=== PATIENT | female | born 1930 | race Caucasian/White ===

== ENCOUNTER 2017-07-23 10:48 | Observation (INO) ==
--- NOTE | 2017-07-22 21:52 | Discharge Summary ---
<Mel Lua - Last Filed: 07/22/17 21:50> Date of Encounter: 07/22/17 - Discharge Diagnosis (1) Status post total right knee replacement Priority: Primary Status: Acute (2) Arthritis of right knee Priority: Primary Status: Chronic (3) HTN (hypertension) Priority: Secondary Status: Chronic Qualifiers: Hypertension type: unspecified Qualified Code(s): I10 - Essential (primary ) hypertension (4) Osteoporosis Priority: Secondary Status: Chronic Qualifiers: Osteoporosis type: unspecified Presence of current pathological fracture: unspecified Qualified Code(s): M81.0 - Age-related osteoporosis without current pathological fracture (5) History of breast cancer Priority: Secondary Status: Chronic - Hospital Course Hospital course: Ms. Jimenes is a 86 year old female - Time Spent with Patient Total time spent providing and/or coordinating discharge services: - Discharge Medications Home Medications: Aspirin Enteric Coated [Aspirin EC] 325 mg PO BID 10 Days #20 tablet. [Rx] OxyCODONE Immed Rel [Roxicodone 5 MG] 5 mg PO Q6HR PRN 7 Days #28 tablet [Rx] Atenolol [Tenormin] 50 mg PO BID 07/23/17 [History] Calcium Citrate/Vitamin D3 [Calcium Citrate - Vit D Caplet] 1 tab PO DAILY 07/23 [History] Cholecalciferol (D-3) [Vitamin D] 1,000 unit PO DAILY 07/23/17 [History] Losartan [Cozaar] 25 mg PO 1200 07/23/17 [History] Vit C/E/Zn/Coppr/Lutein/Zeaxan [Preservision Areds 2 Softgel] 1 cap PO DAILY 06/10 [History] Allergies/Adverse Reactions: 3 Allergy/AdvReac Type Severity Reaction Status Date / Time Amoxicillin AdvReac Diarrhea Verified 07/23/17 12:19 Sulfa (Sulfonamide AdvReac Diarrhea Verified 07/23/17 12:19 Antibiotics) Primary care physician: Rhianna Harris CNP - Patient Status Disposition: Home Health Service Condition: Good - Discharge Instructions Follow Up With: Rhianna Harris CNP [Primary Care Provider] - <Cas Coleman - Last Filed: 07/24/17 06:41> Orders not resulted at time of discharge: Pending orders 07/23/17 US anesthesia pain block [US] Stat 07/23/17 01:00 XR knee RT limited 1-2V [XR] Routine Hemoglobin and Hematocrit [HEME] Routine Date of Encounter: 07/24/17 Time of Encounter: 06:41 - Discharge Diagnosis (1) Arthritis of right knee Priority: Primary Status: Chronic (2) Status post total right knee replacement Priority: Primary Status: Acute (3) HTN (hypertension) Priority: Secondary Status: Chronic Qualifiers: Hypertension type: unspecified Qualified Code(s): I10 - Essential (primary ) hypertension (4) Osteoporosis Priority: Secondary Status: Chronic Qualifiers: Osteoporosis type: unspecified Presence of current pathological fracture: unspecified Qualified Code(s): M81.0 - Age-related osteoporosis without current pathological fracture (5) History of breast cancer Priority: Secondary Status: Chronic - Hospital Course Hospital course: Ms. Jimenes is a 86 year old female Status post right total knee replacement The patient had an uneventful postoperative course. They received antibiotics and physical therapy and were discharged in stable condition. There will follow -up in the office in 2 weeks. - Time Spent with Patient Total time spent providing and/or coordinating discharge services: Primary care physician: Rhianna Harris CNP - Patient Status Functional capacity at discharge: uses cane/walker Overall status at discharge: patient is progressing back to baseline
--- NOTE | 2017-07-22 21:54 | Physician Discharge Referral ---
Home Health/Hosp Referral Info Transfer to: Home Health Attending Provider: Dr Coleman - Diagnosis (1) Status post total right knee replacement Priority: Primary Status: Acute (2) Arthritis of right knee Priority: Primary Status: Chronic (3) HTN (hypertension) Priority: Secondary Status: Chronic (4) Osteoporosis Priority: Secondary Status: Chronic (5) History of breast cancer Priority: Secondary Status: Chronic - Respiratory Orders Smoking Cessation: Smoking cessation has been advised. For more information, call the [employer] Quit Line at 8-236-RUIH-NOW. - Dressing/Wound Care Site: right knee Type of Dressing/Treatments w/Frequency: Opsite placed. Keep dressing intact until first follow up appointment. If greater than 50% saturated, notify office, remove dressing and place appropriate dressing back in place. Leave Zipline intact. Opsite dressing is water resistant, not water-proof. OK to shower, but do not get dressing wet. - Diet/Nutrition Diet/Nutrition Orders: Regular - Activity Activity Orders: Up ad rodolfo, Ambulate, Chair, Walker Activity: List: Total Knee replacement Precautions x 6 weeks Apply cold therapy wrap 3-6x/day for 20 minutes at a time. Encourage ambulation throughout the day and incentive spirometer 10x/hour. Elevate affected extremity above heart as tolerated. Brace: Wear knee immobilizer at night x 2 weeks. - Services Needed Following services are medically necessary services: Nursing, Home Health Aide, Physical Therapy, Occupational Therapy - Transfer Medications Prescriptions: OxyCODONE Immed Rel [Roxicodone 5 MG] 5 mg PO Q6HR PRN 7 Days #28 tablet PRN Reason: Severe Pain Aspirin Enteric Coated [Aspirin EC] 325 mg PO BID 10 Days #20 tablet. Home Medications: Cefdinir [Omnicef] 300 mg PO BID #20 capsule 12/28/14 [Rx] Ondansetron [Zofran] 8 mg PO Q8HR #20 tablet 12/28/14 [Rx] Aspirin Enteric Coated [Aspirin EC] 325 mg PO BID 10 Days #20 tablet. [Rx] OxyCODONE Immed Rel [Roxicodone 5 MG] 5 mg PO Q6HR PRN 7 Days #28 tablet [Rx] Allergies/Adverse Reactions: 3 Allergy/AdvReac Type Severity Reaction Status Date / Time Amoxicillin AdvReac Diarrhea Verified 12/28/14 06:09 Certification: Further, I certify that my clinical findings support that this patient is homebound (i.e. absences from home require considerable and taxing effort and are for medical reasons or spiritism services or infrequently or short duration when for other reasons) because: Homebound Reason: Post-surgery restriction and or conditions limit ability to leave home Attestation: My signature below is to certify that this patient is under my care and that I, or nurse practitioner, or a physician assistant spa director working with me, has a face-to- face encounter with this patient.
--- NOTE | 2017-07-23 11:23 | Anesthesia Evaluation PreOp ---
Date of Encounter: 07/23/17 Time of Encounter: 11:21 - Past History Planned Operation: Right Total Knee Arthroplasty Cardiac History: HTN Pulmonary History: Denies Any Significant HX CARE ATTENDANT History: Denies Any Significant HX Other Medical History: Other (H/O breast CA) Anesthesia History: No Prior Anesthetic Complications, Past Anesthesia ( hysterectomy) Alcohol Use: none Drug use: none Medications and Allergies Cefdinir [Omnicef] 300 mg PO BID #20 capsule 12/28/14 [Rx] Ondansetron [Zofran] 8 mg PO Q8HR #20 tablet 12/28/14 [Rx] Aspirin Enteric Coated [Aspirin EC] 325 mg PO BID 10 Days #20 tablet. [Rx] OxyCODONE Immed Rel [Roxicodone 5 MG] 5 mg PO Q6HR PRN 7 Days #28 tablet [Rx] 3 Allergy/AdvReac Type Severity Reaction Status Date / Time Amoxicillin AdvReac Diarrhea Verified 12/28/14 06:09 - Meds/Allergy Pre-op Review Medications Reviewed: Yes Allergies Reviewed: Yes Beta Blockers on Current Med List: Yes If Beta Blockers taken, Date/Time (Last Dose taken): 07/23/2017 at 0700 Anesthesia Results - Labs Laboratory Tests 07/12/17 07/12/17 07/12/17 08:13 08:13 08:13 WBC 8.6 Hgb 14.2 Hct 46.4 H Plt Count 260 PT 10.8 INR 1.0 APTT 30.5 Sodium 139 Potassium 4.6 BUN 19 Creatinine 0.98 - Imaging EKG: report reviewed (07/12/2017 SINUS RHYTHM) Additional studies: 05/24/2012 Echo Impressions: * There is basal septal hypertrophy, otherwise normal LV size, function, and thickess. LVEF 55-60% * Mild LV diastolic dysfunction. * Normal RV. * Mildly dilated left atrium. 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 * Mild MR. * Mild pulmonary hypertension. * The estimated RVSP was 38 mmHg as estimated by Doppler. Anesthesia Exam O2 Sat Height 1.5 m Height 1.5 m Weight 55.792 kg Weight 55.792 kg O2 Sat by Pulse Oximetry 98 Vital Signs Temp Pulse Resp BP Pulse Ox 98.0 F 66 18 162/68 98 07/23/17 11:09 07/23/17 11:09 07/23/17 11:09 07/23/17 11:09 07/23/17 11:09 Height: 4'11''/1.5 m Weight: 123 lbs/55.8 kg NPO (# of Hours): 8 Pain Scale: 0 Pain Scale Used: Numeric (1 - 10) - HEENT Pupil (Motor): EOMI Mallampati: III Teeth: Normal Oral Opening: Greater than 3 - CARE ATTENDANT LOC: Oriented CARE ATTENDANT Motor: Normal RUE, Normal LUE, Normal RLE, Normal LLE, Normal Face CARE ATTENDANT Sensory: Normal: RUE, LUE, RLE, LLE, Face - Cardiac Rhythm: Regular Murmur: None - Pulmonary Breath Sounds: bilateral Clear Respiratory Effort: Symmetrical Anesthesia Assess/Plan ASA Score: 2 Modified Mario Alberto Scale for Level of Consciousness: Cooperative, oriented, and tranquil Anesthetic Plan: General, Regional Monitoring Plan: Standard Monitors Recovery Plan: PACU
[2017-07-23] MEDS ORDERED: Clindamycin 900 MG/50 ML 900 MG/50 ML IV.SOLN IVPB ONE (11:24)
[2017-07-23] MEDS ORDERED: Ringers Solution, Lactated 1,000 ML IVC SCH ×2 (11:30→16:43)
[2017-07-23] MEDS ORDERED: *HR* FentaNYL (PF) 100 MCG/2 ML VIAL ONE (12:27)
[2017-07-23] MEDS ORDERED: Ketorolac 30 MG/ML VIAL ONE (12:27)
[2017-07-23] MEDS ORDERED: *HR* Labetalol 20 MG/4 ML SYRINGE IVP PRN (12:36)
[2017-07-23] MEDS ORDERED: Dexamethasone 4 MG/ML VIAL IVP ONE (12:36)
[2017-07-23] MEDS ORDERED: Ondansetron 4 MG/2 ML VIAL IVP ONE (12:36)
[2017-07-23] MEDS ORDERED: Lidocaine -MPF 2% 2 ML VIAL ONE (12:38)
[2017-07-23] MEDS ORDERED: Ondansetron 4 MG/2 ML VIAL ONE (12:38)
[2017-07-23] MEDS ORDERED: *HR* Propofol 200 MG/20 ML VIAL IVP ONE (12:38)
[2017-07-23] MEDS ORDERED: Dexamethasone 4 MG/ML VIAL ONE ×2 (12:38→13:17)
[2017-07-23] MEDS ORDERED: Lidocaine -MPF 4% 5 ML AMPUL ONE (12:43)
[2017-07-23] MEDS ORDERED: *HR* Midazolam HCl 2 MG/2 ML VIAL ONE (12:58)
--- NOTE | 2017-07-23 13:03 | History & Physical Report ---
Date of Encounter: 07/23/17 Time of Encounter: 13:02 24 Hour HP Update - Instructions Instructions: If the History and Physical is less than 30 days old and was completed prior to A.M. admission and or procedure and has NOT been updated on calendar day of procedure please complete this update prior to performing procedure. - Update Patient reports changes in Medical Condition: No Changes in examination, assessment, or condition: No Changes in Medication: No Preop tests/diagnostics Reviewed: Yes Surgery Remains Indicated: Yes Consent for Planned Operative Procedure(s) Verified: Yes - Pre-Operative Checklist Preoperative Checklist Indicated: No Prophylactic Antibiotic Ordered: Yes Is VTE Prophylaxis Indicated?: Yes
[2017-07-23] MEDS ORDERED: ROPIVACAINE HCL/PF 0.5% 30 ML VIAL ONE (13:15)
[2017-07-23] MEDS ORDERED: Bupivacaine/Clonidine Syringe 1 EACH SYRINGE ONE (13:17)
[2017-07-23] MEDS ORDERED: Ethanol\\Acetic Acid\\Na Ace\\Ben 1,000 ML IRRIG.SOLN IR ONE (13:35)
--- NOTE | 2017-07-23 13:48 | Anesthesia Procedures ---
Date of Encounter: 07/23/17 Time of Encounter: 13:46 Procedures: Anesthesia - Nerve Block Procedure Date: 07/23/17 Time: 13:46 Allergies/Adv Reactions: Amoxicillin Pre-op Diagnosis: right knee arthritis Surgical Procedure: right total knee Checklist: Correct Patient Identifier, Correct procedure, History checked Correct side: Right Blood Thinner: No Monitor Applied: BP, Pulse Oximetry Supplemental Oxygen via Nasal Cannula (L/min): 2 Sedation: Versed (mg): 2 Indication: Post Op Analgesia (per dr. leon) Pre-op Neuro Deficits: No Block Type: Femoral, Other (ipack) Catheter placed: No Sterile Technique: Yes Ultrasound used: Yes Anatomy identified: Yes Visual spread of Local: Yes Neuro Stimulation: Yes Nerve Stimulator Range: 0.2 - 0.4 mA Blood on Needle Aspiration: No Smooth Injection of Local: Yes Pain with Injection of Local: No Prep: Chlorhexadine Needle: 22 x 50 mm Stimuplex (for femoral), 21 x 100 mm Stimuplex (for ipack) Local: 0.25% Bupivicaine w/Clonidine 20 mcg/cc (20ml for ipack), Ropivacaine ( 0.5% with decadron 8mg for femoral) Volume (cc): 30ml for femoral, 20ml fo Number of Attempts: 1 Complications: None/effective block Vitals: Vital Signs/O2 Sat, Most Current Temp Pulse Resp BP Pulse Ox 98.0 F 69 18 170/79 100 07/23/17 11:09 07/23/17 13:33 07/23/17 13:33 07/23/17 13:33 07/23/17 13:33
[2017-07-23] MEDS ORDERED: Acetaminophen IV 1,000 MG/100 ML INFUS..BTL ONE (14:28)
--- NOTE | 2017-07-23 14:57 | Orthopedic Operative Note ---
Date of procedure: 07/23/17 Pre-op diagnosis: Right knee arthritis Post-op diagnosis: same Procedure: Procedure: Right robotic-assisted Total knee replacement Estimated blood loss: 200 cc Hardware: Metal and polyethylene replacement. [place] Femur: 2 Tibia: 3 TS insert: 13 Patella: 33 Exam Under anesthesia: 6 degrees hyperextension 5 degrees varus as calculated by the robot full flexion and no instability Procedural Notes: Grade 3 arthritic changes all 3 compartments. Operative procedure: The patient was brought to the operating room and placed on the operating room table. After general anesthesia was administered the operative knee was examined. Findings were noted in the exam under anesthesia. The operative extremity was prepped and draped in sterile surgical fashion. The patient received IV antibiotics prior to skin incision. A standard midline incision was made centered over the patella. The incision was made through the skin and subcutaneous tissue. A medial parapatellar tendon approach was performed. Care was taken to preserve tissue along the medial aspect of the patella. And to protect the patella tendon. The deep MCL was released off the medial tibia. The infra patella fat pad was excised. The patella was everted and cut was made at the level of the insertion of the quadriceps and patella tendon. The patella was sized to 33 the guide was seated and the lug holes are drilled. Knee was brought into flexion. Patient noted to have grade 3 arthritic changes all 3 compartments. Steinmann pins were placed in the tibia and the femur for the tibial and femoral arrays respectively. Checkpoints were also placed in the tibia and the femur for calculation purposes. The knee including the femur and the tibial registered. Osteophytes, ACL and PCL were excised at this point. Extension and flexion were assessed with a valgus stress components were adjusted on the computer to balance the knee. Femoral cuts were made first with robotic assistance, these included the anterior cut posterior cuts chamfer cuts. Tibial cut was then performed with robotic assistance as well. Bone fragments were removed, as well as the medial and lateral meniscus. The size 2 femoral guide was seated box cut was made lug holes are drilled. The size 3 tibial tray was seated and prepared with the fin cutter. Trial reduction with the 13 TPolly revealed extension of 0 degree and 5 degrees varus full flexion. No varus valgus instability. Trial reduction revealed excellent patella tracking. All trial components were removed all bony surfaces were irrigated. The Tibia was seated followed by the femur, The Evie size 13 was seated and secured patella. Patient had similar findings for motion and stability. The knee was closed by the PA. The knee was then irrigated out with 2 L of pulse irrigation. The extensor mechanism was closed with #2 FiberWire suture and #2 PDS suture. The subcutaneous tissue was then irrigated and closed deep with #1 PDS suture superficially with 0 PDS suture and skin was closed with zip tie The patient was then placed in a sterile dressing and a postoperative brace extubated and transferred to recovery room in stable condition. Anesthesia: GETA Surgeon: Cas Coleman Was there an financial services assistant present: No Estimated blood loss (cc): 200 Condition: stable Disposition: PACU
[2017-07-23] MEDS: *HR* Morphine 2 MG/ML SYRINGE IVP PRN ×2 (15:43→16:09)
[2017-07-23 16:11] LABS: Hematocrit 37.5 % (35.3-44.9); Hemoglobin 11.8 g/dL (11.5-15.4)
--- NOTE | 2017-07-23 16:18 | Anesthesia Evaluation Post Op ---
Date of Encounter: 07/23/17 Time of Encounter: 16:17 - Vital Signs Vital Signs: vss - Lungs Lungs: Clear Ascult./Percussion - Airway Airway: Non-obstructed - Cardiovascular Baseline Rhythm - Mental Status Mental Status: Alert & Oriented, Answers Appropriately - Pain Pain Scale used: Grayson-Norris (Faces) (tolerable) - Nausea Vomiting Nausea Vomiting: Not Present - Hydration Hydration: Ice chips - Discharge PostOp Status: Transfer Patient to floor
[2017-07-23] MEDS ORDERED: *HR* OxyCODONE/APAP 5/325 TABLET PO PRN (16:43)
[2017-07-23] MEDS ORDERED: traMADol 50 MG TABLET PO PRN (16:43)
[2017-07-23] MEDS ORDERED: *HR* OxyCODONE Immed Rel 5 MG TABLET PO PRN (16:43)
[2017-07-23] MEDS ORDERED: Naloxone 0.4 MG/ML INJ IVP PRN (16:43)
[2017-07-23] MEDS ORDERED: Sennosides 8.6 MG TABLET PO PRN (16:43)
[2017-07-23] MEDS ORDERED: Clindamycin 900 MG/50 ML 900 MG/50 ML IV.SOLN IVPB SCH (16:43)
[2017-07-23] MEDS ORDERED: MOM Conc 10 ML UD.LIQ PO PRN (16:43)
[2017-07-23] MEDS ORDERED: Temazepam 15 MG CAPSULE PO PRN (16:43)
[2017-07-23] MEDS ORDERED: Ondansetron 4 MG/2 ML VIAL IVP PRN (16:43)
[2017-07-23] MEDS: Clindamycin 900 MG/50 ML 900 MG/50 ML IV.SOLN IVPB SCH (22:06)
[2017-07-24] MEDS: Clindamycin 900 MG/50 ML 900 MG/50 ML IV.SOLN IVPB SCH (05:54)
[2017-07-24 06:19] LABS: Hematocrit 35.3 % (35.3-44.9); Hemoglobin 11.1 g/dL (11.5-15.4)
[2017-07-24 06:40] LABS: BUN/Creatinine Ratio 21 (6-26); Blood Urea Nitrogen 21 mg/dL (8-23); Calcium 8.5 mg/dL (8.6-10.3); Carbon Dioxide 24 mEq/L (23-29); Chloride 104 mEq/L (98-107); Glucose 172 mg/dL (70-105); Osmolality,Calculated 289 (280-300); Potassium 4.3 mEq/L (3.5-5.1); Sodium 136 mEq/L (136-145); eGFR For African Americans > 60 (> 60); eGFR For Non-African Americans 53 (> 60)
--- NOTE | 2017-07-24 06:42 | Orthopedics Progress Note ---
Date of Encounter: 07/24/17 Time of Encounter: 06:42 - Assessment and Plan (1) Arthritis of right knee Current Visit: No Status: Chronic (2) Status post total right knee replacement Current Visit: No Status: Acute (3) HTN (hypertension) Current Visit: No Status: Chronic Qualifiers: Hypertension type: unspecified Qualified Code(s): I10 - Essential (primary ) hypertension (4) Osteoporosis Current Visit: No Status: Chronic Qualifiers: Osteoporosis type: unspecified Presence of current pathological fracture: unspecified Qualified Code(s): M81.0 - Age-related osteoporosis without current pathological fracture (5) History of breast cancer Current Visit: No Status: Chronic Subjective Interval history: Patient was seen this morning doing well without complaints. Afebrile vital signs stable. Operative extremity: Neurovascularly intact Dressing clean dry and intact Calves nontender Assessment and plan: Continue with postoperative care Hematocrit 35 discharged today Objective Vital signs: Vital Signs Temp Pulse Resp BP Pulse Ox 07/24/17 03:14 63 16 160/63 100 07/23/17 23:06 56 16 127/56 100 07/23/17 20:00 98.4 F 66 16 160/68 100 07/23/17 19:20 97.6 F 57 14 111/56 96 07/23/17 18:42 97.6 F 62 16 114/64 94 07/23/17 18:09 97.6 F 74 17 140/67 99 07/23/17 17:38 97.5 F L 61 16 132/69 97 07/23/17 17:00 97.5 F L 64 16 126/57 98 07/23/17 16:21 97.9 F 73 16 155/78 100 07/23/17 16:11 75 16 141/74 99 07/23/17 16:01 81 16 153/71 100 07/23/17 15:51 97.7 F 82 16 135/64 100 07/23/17 15:41 82 16 183/84 100 07/23/17 15:31 79 17 180/88 97 07/23/17 15:21 97.9 F 89 16 162/87 96 07/23/17 13:55 65 16 175/81 100 07/23/17 13:47 67 18 170/79 100 07/23/17 13:33 69 18 170/79 100 07/23/17 13:26 73 18 219/97 100 07/23/17 11:09 98.0 F 66 18 162/68 98 Intake and Output 07/23/17 07/23/17 07/24/17 15:59 23:59 07:59 Intake Total 50 / 50 150 / 150 Output Total 200 / 200 Balance -150 / -150 150 / 150 Intake: IV Fluids 50 / 50 50 / 50 Cleocin Premix 900 MG/50 ML 900 50 / 50 50 / 50 mg In 50 ml @ 50 mls/hr IVPB Q8H DUSTY Rx#:[id number] Oral 100 / 100 Output: Estimated Blood Loss 200 / 200 Other: # Voids 1 Weight 55.792 kg 66.1 kg Patient Weight 07/24/17 23:59 Weight 66.1 kg - Labs CBC & BMP: 07/24/17 05:42 07/24/17 05:42 Labs: Abnormal lab results Hgb 11.1 g/dL (11.5-15.4) L 07/24/17 05:42 Est GFR (Non-Af Amer) 53 (> 60) L 07/24/17 05:42 Glucose 172 mg/dL (70-105) H 07/24/17 05:42 Calcium 8.5 mg/dL (8.6-10.3) L 07/24/17 05:42 - VTE Documentation of Mechanical Device: Venous foot pump, device Consult Discharge Plan - Plan Referrals: Rhianan Harris, [facility] IRONER [Primary Care Provider] -
[2017-07-24] MEDS: Cholecalciferol (D-3) 1,000 UNIT TABLET PO SCH (09:45)
[2017-07-24] MEDS: Aspirin Enteric Coated 81 MG Tablet PO SCH (14:40)
--- NOTE | 2017-07-24 14:44 | Event Note ---
Date of Encounter: 07/24/17 Time of Encounter: 09:30 Late entry - patient fell - examined wound. Superficial wound closure dehiscence. Cleansed throroughly. Stapled. patient tolerated well. Zipline reapplied. Cleansed again. Honeycomb applied.
--- NOTE | 2017-07-24 14:46 | Event Note ---
Date of Encounter: 07/24/17 Time of Encounter: 12:25 PCR- POD#1 R TKR robotic 07/23/17 Jared PCR - Patient seen at bedside. Labwork and medications reviewed. Pain control: Adequate Participating in PT. All questions and concerns addressed. Educated on use of incentive spirometer, ambulation, and hydration. Patient educated on post-operative restrictions and care. Addressed: Wound dehiscence - patient being noncompliant with bed alarm and attempting to ambulate independently. Patient reeducated however she changes the topic. She at first denies knowledge of falling this morning. Concern for possible underlying dementia worsened from surgery and pain medications as well as new environment. Nursing staff aware of patient's lack of awareness to personal safety. D/C plan: Home tomorrow with home health pending any further complications. If patient determined to be unsafe will refer to [facility]CF for rehab.
[2017-07-25 08:54] LABS: Hematocrit 31.4 % (35.3-44.9)
[2017-07-25 09:01] LABS: BUN/Creatinine Ratio 24 (6-26); Blood Urea Nitrogen 24 mg/dL (8-23); Calcium 9.2 mg/dL (8.6-10.3); Carbon Dioxide 27 mEq/L (23-29); Chloride 102 mEq/L (98-107); Glucose 138 mg/dL (70-105); Osmolality,Calculated 284 (280-300); Potassium 4.5 mEq/L (3.5-5.1); Sodium 134 mEq/L (136-145); eGFR For African Americans > 60 (> 60); eGFR For Non-African Americans 53 (> 60)
[2017-07-25] MEDS: Acetaminophen 325 MG TABLET PO PRN (09:38)
[2017-07-25] MEDS: Cholecalciferol (D-3) 1,000 UNIT TABLET PO SCH (09:40)
[2017-07-25] MEDS: Aspirin Enteric Coated 81 MG Tablet PO SCH (09:40)
[2017-07-25 11:52] LABS: Bilirubin,Urine Negative (Negative); Blood,Urine Negative (Negative); Clarity,Urine Clear (Clear); Color,Urine Yellow (Yellow); Glucose,Urine (UA) Normal (Normal); Ketones,Urine Trace mg/dL (Negative); Leukocyte Esterase,Urine Negative (Negative); Nitrite,Urine Negative (Negative); Protein,Urine Trace mg/dL (Neg-Trace); Specific Gravity,Urine 1.028 (1.010-1.025); Urobilinogen,Urine Normal (Normal)
[2017-07-25 11:56] LABS: Bacteria,Urine None Seen per hpf (None-Few); Hyaline Casts,Urine None Seen per lpf (None-Few); RBC,Urine 0-3 per hpf (0-3); Squamous Epithelial Cell,Urine Many per lpf (None-Few); WBC,Urine 0-3 per hpf (0-3)
--- NOTE | 2017-07-25 17:02 | Orthopedics Progress Note ---
Date of Encounter: 07/25/17 Time of Encounter: 11:45 - Assessment and Plan (1) Status post total right knee replacement Current Visit: Yes Status: Acute (2) Arthritis of right knee Current Visit: Yes Status: Chronic (3) HTN (hypertension) Current Visit: No Status: Chronic Qualifiers: Hypertension type: unspecified Qualified Code(s): I10 - Essential (primary ) hypertension (4) Osteoporosis Current Visit: No Status: Chronic Qualifiers: Osteoporosis type: unspecified Presence of current pathological fracture: unspecified Qualified Code(s): M81.0 - Age-related osteoporosis without current pathological fracture (5) History of breast cancer Current Visit: No Status: Chronic (6) Fall Current Visit: Yes Status: Acute Qualifiers: Encounter type: subsequent encounter Qualified Code(s): W19.XXXD - Unspecified fall, subsequent encounter (7) Wound dehiscence Current Visit: Yes Status: Acute 07/24/17 - Corrected with lindsay - patient tolerated well Subjective Principal diagnosis: Right total knee replacement Interval history: POD#2 R TKR robotic 07/23/17 Jared Patient seen at bedside - no family available. Alert and oriented to person and time. Patient states she is presently in top floor of where she and her live and initially denies knowledge of knee replacement surgery. Does admit to a fall and recounts appropriate details of the fall however she then appears to believe she is here secondary to a fall 1 day ago based on stating "I'm here for Dr. Coleman to do something". Incision intact. Dressing c/d/i. No calf tenderness. Neurovascularly intact. Labwork and medications reviewed. Pain control: Adequate Participating in PT. Patient refusing some guidance from nursing and PT. All questions and concerns addressed. Educated on use of incentive spirometer, *assisted ambulation, and hydration. Patient educated on post-operative restrictions and care. Addressed: Wound dehiscence - patient being noncompliant with bed alarm and attempting to ambulate independently. Patient reeducated - Concern for possible underlying dementia worsened from surgery and pain medications as well as new environment. Nursing staff aware of patient's lack of awareness to personal safety. Bed alarm to continue. D/C plan: ECF tomorrow. Objective Vital signs: Vital Signs Temp Pulse Resp BP Pulse Ox 07/25/17 15:19 100.5 F H 65 18 148/60 97 07/25/17 11:11 98.5 F 61 18 153/61 98 07/25/17 07:29 97.8 F 66 18 145/70 95 07/24/17 23:24 98.2 F 71 14 186/68 95 07/24/17 19:51 98.2 F 66 14 138/57 97 Intake and Output 07/25/17 07/25/17 07/25/17 07:59 15:59 23:59 Intake Total 240 / 240 Output Total 100 / 100 200 / 200 Balance -100 / -100 40 / 40 Intake: Oral 240 / 240 Output: Urine 100 / 100 200 / 200 Other: Meal Lunch Percent of Meal Consumed 100% # Voids 1 2 - Labs CBC & BMP: 07/25/17 08:15 07/25/17 08:15 Labs: Abnormal lab results Hgb 10.0 g/dL (11.5-15.4) L 07/25/17 08:15 Hct 31.4 % (35.3-44.9) L 07/25/17 08:15 Sodium 134 mEq/L (136-145) L 07/25/17 08:15 BUN 24 mg/dL (8-23) H 07/25/17 08:15 Est GFR (Non-Af Amer) 53 (> 60) L 07/25/17 08:15 Glucose 138 mg/dL (70-105) H 07/25/17 08:15 Ur Specific [place] 1.028 (1.010-1.025) H 07/25/17 10:00 Urine Ketones Trace mg/dL (Negative) H 07/25/17 10:00 Ur Squamous Epith Cells Many per lpf (None-Few) H 07/25/17 10:00 - VTE Documentation of Mechanical Device: Venous foot pump, device Consult Discharge Plan - Plan Additional Instructions: Discharge Instructions: Total Knee Replacement Please call [facility] ([phone]), your Primary Care Physician, or report to the Emergency Room if you have any of the following symptoms: Nausea, vomiting, fever greater that 101.5, swelling, chest pain, shortness of breath, increased pain/redness/drainage/odor for your incision site, numbness/ tingling, or any other concerning symptoms. ACTIVITY:Weight-bearing as tolerated. You may progress off support (crutches or walker) as tolerated. MEDICATIONS: Upon discharge resume your home medications. Take all the medications as prescribed. Take a stool softener if taking narcotic pain medications. Stool softeners are only effective if you drink enough fluids. Drink 6-8 glass of water or fluids a day, unless this is not allowed for another health problem. Despite using stool softeners, if you haven't had a bowel movement in 3 days, please switch to a gentle laxative. Gentle laxatives are sold over the counter. You should have a bowel movement within 24 hours, if not call the office. You will be discharged from the hospital with a prescription for pain medication. You are encouraged to decrease the use of narcotic pain medication as tolerated. Should you require a refill, please call the office. [facility] prescribes narcotic pain medication for only 4-6 weeks after surgery. If you require pain medication beyond this time period, you may be referred to your Primary Care Physician or to the Pain Clinic for further evaluation. Plan ahead for refills on pain medication as many narcotics either need to be picked up at the office or mailed. It is best to call 48-72 hours in advance of needing a prescription refill so you don't run out of medication. To help control the post-operative pain, you may take NSAIDs (Aleve,Advil, Motrin, Ibuprofen, Naprosyn) or Tylenol as prescribed on the bottle in addition to the pain medication. ANTICOAGULATION (blood thinners): Continue your Aspirin, Lovenox or Coumadin as prescribed to help prevent a blood clot in the leg or in the lungs. As long as your incision remains dry and you tolerate the NSAIDs (Aleve, Advil, Motrin, ibuprofen, naprosyn), it is OK to use the NSAIDS while you are taking your anticoagulation medication. Should your incision start to drain, stop the NSAID and contact our office. Common symptoms of blood clot in the legs include: localized pain, swelling, calf tenderness, redness or discoloration of the skin. Blood clot in the lung symptoms include: shortness of breath, rapid pulse, sweating, and chest pain that worsens with deep breathing, coughing up blood, lightheadedness, feelings of anxiety. If you experience any of these symptoms notify your physician immediately, go to the emergency room, or if having trouble breathing, call 911. WOUND CARE: Leave the dressing on for 7 to 10days. You may change the dressing if it becomes saturated greater than 50%. Do not get the dressing wet at anytime. Wash your hands with antibacterial soap, rinse and dry prior to any wound care. If you have lindsay the visiting nurse or rehab facility can remove the stapes 10-14 days after surgery and place steri-strips across the wound. Leave the steri-strips in place until they fall off on their won. You may let water from the shower run on top of the steri-strips. If you do not have a visiting nurse or rehab facility, you will need to return to the office at 10-14 days for the lindsay to be removed. If you have itching or redness around the dressing call the office. FOLLOW-UP: Please follow up with your surgeon in the orthopedic clinic in 4 weeks from the day of surgery. If you have lindsay that need to be removed, you will need to come back to the office in 10-14 days from the day of surgery. Referrals: Cas Coleman MD [Partnered Physician] - 08/02/17 9:45 am Rhianna Harris CNP [Primary Care Provider] -
[2017-07-26] MEDS: Acetaminophen 325 MG TABLET PO PRN (03:34)
--- NOTE | 2017-07-26 08:46 | Orthopedics Progress Note ---
Date of Encounter: 07/26/17 Time of Encounter: 08:45 - Assessment and Plan (1) Arthritis of right knee Current Visit: Yes Status: Chronic (2) Status post total right knee replacement Current Visit: Yes Status: Acute (3) HTN (hypertension) Current Visit: No Status: Chronic Qualifiers: Hypertension type: unspecified Qualified Code(s): I10 - Essential (primary ) hypertension (4) Osteoporosis Current Visit: No Status: Chronic Qualifiers: Osteoporosis type: unspecified Presence of current pathological fracture: unspecified Qualified Code(s): M81.0 - Age-related osteoporosis without current pathological fracture (5) History of breast cancer Current Visit: No Status: Chronic Subjective Principal diagnosis: Right total knee replacement Interval history: Patient was seen this morning with postoperative confusion. Afebrile vital signs stable. Operative extremity: Neurovascularly intact Dressing clean dry and intact Calves nontender Assessment and plan: Continue with postoperative care We will consult hospitalist for evaluation of postoperative confusion. Labs reviewed no concerning abnormalities.. Objective Vital signs: Vital Signs Temp Pulse Resp BP Pulse Ox 07/26/17 07:25 98.2 F 75 18 150/58 97 07/26/17 03:53 98.5 F 65 16 169/80 93 07/25/17 23:33 98.7 F 61 14 151/63 96 07/25/17 15:19 100.5 F H 65 18 148/60 97 07/25/17 11:11 98.5 F 61 18 153/61 98 Intake and Output 07/25/17 07/26/17 07/26/17 23:59 07:59 15:59 Output Total 200 / 200 50 / 50 Balance -200 / -200 -50 / -50 Output: Urine 200 / 200 50 / 50 Other: # Voids 1 - Labs CBC & BMP: 07/25/17 08:15 07/25/17 08:15 Labs: Abnormal lab results Hgb 10.0 g/dL (11.5-15.4) L 07/25/17 08:15 Hct 31.4 % (35.3-44.9) L 07/25/17 08:15 Sodium 134 mEq/L (136-145) L 07/25/17 08:15 BUN 24 mg/dL (8-23) H 07/25/17 08:15 Est GFR (Non-Af Amer) 53 (> 60) L 07/25/17 08:15 Glucose 138 mg/dL (70-105) H 07/25/17 08:15 Ur Specific [place] 1.028 (1.010-1.025) H 07/25/17 10:00 Urine Ketones Trace mg/dL (Negative) H 07/25/17 10:00 Ur Squamous Epith Cells Many per lpf (None-Few) H 07/25/17 10:00 - VTE Documentation of Mechanical Device: Venous foot pump, device Consult Discharge Plan - Plan Additional Instructions: Discharge Instructions: Total Knee Replacement Please call [facility] ([phone]), your Primary Care Physician, or report to the Emergency Room if you have any of the following symptoms: Nausea, vomiting, fever greater that 101.5, swelling, chest pain, shortness of breath, increased pain/redness/drainage/odor for your incision site, numbness/ tingling, or any other concerning symptoms. ACTIVITY:Weight-bearing as tolerated. You may progress off support (crutches or walker) as tolerated. MEDICATIONS: Upon discharge resume your home medications. Take all the medications as prescribed. Take a stool softener if taking narcotic pain medications. Stool softeners are only effective if you drink enough fluids. Drink 6-8 glass of water or fluids a day, unless this is not allowed for another health problem. Despite using stool softeners, if you haven't had a bowel movement in 3 days, please switch to a gentle laxative. Gentle laxatives are sold over the counter. You should have a bowel movement within 24 hours, if not call the office. You will be discharged from the hospital with a prescription for pain medication. You are encouraged to decrease the use of narcotic pain medication as tolerated. Should you require a refill, please call the office. [facility] prescribes narcotic pain medication for only 4-6 weeks after surgery. If you require pain medication beyond this time period, you may be referred to your Primary Care Physician or to the Pain Clinic for further evaluation. Plan ahead for refills on pain medication as many narcotics either need to be picked up at the office or mailed. It is best to call 48-72 hours in advance of needing a prescription refill so you don't run out of medication. To help control the post-operative pain, you may take NSAIDs (Aleve,Advil, Motrin, Ibuprofen, Naprosyn) or Tylenol as prescribed on the bottle in addition to the pain medication. ANTICOAGULATION (blood thinners): Continue your Aspirin, Lovenox or Coumadin as prescribed to help prevent a blood clot in the leg or in the lungs. As long as your incision remains dry and you tolerate the NSAIDs (Aleve, Advil, Motrin, ibuprofen, naprosyn), it is OK to use the NSAIDS while you are taking your anticoagulation medication. Should your incision start to drain, stop the NSAID and contact our office. Common symptoms of blood clot in the legs include: localized pain, swelling, calf tenderness, redness or discoloration of the skin. Blood clot in the lung symptoms include: shortness of breath, rapid pulse, sweating, and chest pain that worsens with deep breathing, coughing up blood, lightheadedness, feelings of anxiety. If you experience any of these symptoms notify your physician immediately, go to the emergency room, or if having trouble breathing, call 911. WOUND CARE: Leave the dressing on for 7 to 10days. You may change the dressing if it becomes saturated greater than 50%. Do not get the dressing wet at anytime. Wash your hands with antibacterial soap, rinse and dry prior to any wound care. If you have lindsay the visiting nurse or rehab facility can remove the stapes 10-14 days after surgery and [address] steri-strips across the wound. Leave the steri-strips in place until they fall off on their won. You may let water from the shower run on top of the steri-strips. If you do not have a visiting nurse or rehab facility, you will need to return to the office at 10-14 days for the lindsay to be removed. If you have itching or redness around the dressing call the office. FOLLOW-UP: Please follow up with your surgeon in the orthopedic clinic in 4 weeks from the day of surgery. If you have lindsay that need to be removed, you will need to come back to the office in 10-14 days from the day of surgery. Referrals: Cas Coleman MD [Partnered Physician] - 08/02/17 9:45 am Rhianna Harris CNP [Primary Care Provider] -
--- NOTE | 2017-07-26 09:04 | Event Note ---
Date of Encounter: 07/26/17 Time of Encounter: 09:03 Patient continues with post-op confusion, hospitalist consult obtained. CBC, CMP ordered stat. UA from 07/25/17 normal.
[2017-07-26] MEDS: Cholecalciferol (D-3) 1,000 UNIT TABLET PO SCH (09:22)
[2017-07-26] MEDS: Aspirin Enteric Coated 81 MG Tablet PO SCH (09:22)
[2017-07-26 09:23] LABS: Basophils % 0.2 %; Eosinophils % 0.1 %; Hematocrit 30.3 % (35.3-44.9); Hemoglobin 9.7 g/dL (11.5-15.4); Immature Granulocytes % 0.6 % (0-4); Lymphocytes # 1.8 K/mcL (0.6-4.6); Lymphocytes % 14.6 %; Mean Corpuscular Hemoglobin 30.3 pg (28.0-33.3); Mean Corpuscular Volume 94.7 fL (83.0-100.0); Mean Platelet Volume 10.6 fL (9.4-12.4); Monocytes % 8.1 %; Neutrophils # 9.2 K/mcL (1.6-8.9); Platelet Count 219 K/mcL (140-400); Red Cell Distribution Width 13.4 % (11.5-14.5); Segmented Neutrophils % 76.4 %
[2017-07-26 09:38] LABS: Alanine Aminotransferase 13 Units/L (7-52); Albumin 3.4 g/dL (3.5-5.7); Albumin/Globulin Ratio 1.3 (1.1-2.2); Alkaline Phosphatase 78 Units/L (34-104); Aspartate Amino Transferase 26 Units/L (13-39); BUN/Creatinine Ratio 20 (6-26); Bilirubin,Total 0.5 mg/dL (0.3-1.0); Blood Urea Nitrogen 19 mg/dL (8-23); Calcium 9.1 mg/dL (8.6-10.3); Carbon Dioxide 27 mEq/L (23-29); Chloride 104 mEq/L (98-107); Globulin 2.6 g/dL (2.4-3.5); Glucose 167 mg/dL (70-105); Osmolality,Calculated 288 (280-300); Potassium 4.2 mEq/L (3.5-5.1); Sodium 136 mEq/L (136-145); eGFR For African Americans > 60 (> 60); eGFR For Non-African Americans 56 (> 60)
--- NOTE | 2017-07-26 09:41 | Physician Discharge Referral ---
ExtendedCare Referral Info Transfer To: [facility] Provider in Charge: Dr Coleman - Diagnosis (1) Status post total right knee replacement Priority: Primary Status: Acute (2) Arthritis of right knee Priority: Primary Status: Chronic (3) HTN (hypertension) Priority: Secondary Status: Chronic (4) Osteoporosis Priority: Secondary Status: Chronic (5) History of breast cancer Priority: Secondary Status: Chronic (6) Fall Priority: Secondary Status: Acute (7) Wound dehiscence Priority: Secondary Status: Acute (8) Confusion, postoperative Priority: Secondary Status: Acute Expected Duration of Placement: less than 30 days Prognosis: Good Aware of Diagnosis: Patient Aware of Prognosis: Patient - Transfer Medications Home Medications: Aspirin Enteric Coated [Aspirin EC] 325 mg PO BID 10 Days #20 tablet. [Rx] OxyCODONE Immed Rel [Roxicodone 5 MG] 5 mg PO Q6HR PRN 7 Days #28 tablet [Rx] Atenolol [Tenormin] 50 mg PO BID 07/23/17 [History] Calcium Citrate/Vitamin D3 [Calcium Citrate - Vit D Caplet] 1 tab PO DAILY 07/23 [History] Cholecalciferol (D-3) [Vitamin D] 1,000 unit PO DAILY 07/23/17 [History] Losartan [Cozaar] 25 mg PO 1200 07/23/17 [History] Vit C/E/Zn/Coppr/Lutein/Zeaxan [Preservision Areds 2 Softgel] 1 cap PO DAILY 06/10 [History] Allergies/Adverse Reactions: 3 Allergy/AdvReac Type Severity Reaction Status Date / Time Amoxicillin AdvReac Diarrhea Verified 07/23/17 12:19 Sulfa (Sulfonamide AdvReac Diarrhea Verified 07/23/17 12:19 Antibiotics) - Respiratory Orders Smoking Cessation: Smoking cessation has been advised. For more information, call the [place] Tobacco Quit Line at 3-855-AXOD-NOW. - Ancillary Orders May use pressure relief devices daily prn, May go on SHWETHA w/family/respon democrat w /meds at nurse discretion PRN, May consult with Dentist, Broommaking Supervisor, Wood Handler PRN - Mobility Orders Chair, Ambulate - Rehabiliation Orders Rehab Potential: Good Rehab Orders: Evaluation for Physical Therapy, Evaluation for Occupational Therapy Other: Total Knee replacement Precautions x 6 weeks Apply cold therapy wrap 3-6x/day for 20 minutes at a time. Encourage ambulation throughout the day and incentive spirometer 10x/hour. Elevate affected extremity above heart as tolerated. Brace: Wear knee immobilizer at night x 2 weeks. - Treatments Skin tear care topically daily PRN per policy List/Other: Opsite placed. Keep dressing intact until first follow up appointment. If greater than 50% saturated, notify office, remove dressing and place appropriate dressing back in place. Leave Zipline and lindsay intact. Opsite dressing is water resistant, not water-proof. OK to shower, but do not get dressing wet. - Diet Orders Regular CERTIFICATION: I certify that the transfer of the above named patient to an Extended Care Facility is necessary for the continuing treatment of the diagnosis listed. The above information is true and accurate reflection of patient's current condition. Confidential - Redisclosure prohibited without a patient's written consent.
[2017-07-26 10:48] VITALS: BP 106/60
--- NOTE | 2017-07-26 10:54 | Internal Medicine Consult Note ---
Date of Encounter: 07/26/17 Time of Encounter: 10:01 - Assessment and plan (1) Confusion, postoperative Current Visit: Yes Status: Acute Assessment and plan: . Jalil is a relatively healthy active 86 year old woman who had a right TKA done on 07/23/2017 and has experienced confusion over the past two days. The hospitalist service is asked to evaluate her confusion prior to discharge to rehab. She tolerated the surgery well and is recovering without complications or signs of infection. Her pain is well controlled and per RN she has not required any of the PRN opiod pain medications available. She shows no signs of acute neurological deficits other than mild confusion. She reports she hasn't been able to sleep and her thinks the same. She is A&O x3, but momentarily thought she was at formerly [facility] but quickly corrected herself. Her WBC is elevated slightly but she has no dysuria, urinary urgency or UTI symptoms. Her UA is contaminated and her CXR did not show signs of PNA. She may have some undiagnosed dementia or be showing mild signs of delirium. I don' t see any reason for further imaging and her neurological exam did not show acute deficits. Her symptoms are relatively mild and may resolve with sleep. The blinds are down and she is not sleeping. Changes in light-dark cycles can cause delirium especially in the elderly. Try opening the blinds during the day and avoid daytime sleeping so she can sleep at night. Avoid all sedating medications. Her pain seems well controlled without opiod use so continue the lidocaine patches and Tylenol. Also, review her pre-admissions medication for any medications which may not have been continued (SSRI's, etc). The uA was contaminated with squamous cells so repeat UA if she is symptomatic. We appreciate the consultation and the ability to help with the care of your patient. We will continue to follow along. (2) Status post total right knee replacement Current Visit: Yes Status: Acute Assessment and plan: Continue current pain mgt avoiding opiods as mentioned above. (3) History of stroke Current Visit: Yes Status: Acute Assessment and plan: She has a history of a prior stroke with mild facial droop. confirms the mild facial droop is no different. She has no acute deficits. Continue/ restart any prophylactic medications (aspirin, plavix, etc. when appropriate) - Time Spent With Patient Total time spent is greater than 50% in coordination of care (as documented) at patient's floor/unit and/or counseling patient: Greater than 35 minutes Internal Medicine - CN: HPI - Data of Consult Patient: new to practice Consult date: 07/26/17 Requesting Physician: Cas Coleman MD - Consult Narrative Reason for consult: Confussion History of present illness: Ms. Jimenes is a relatively healthy active 86 year old woman who had a right TKA done on 07/23/2017 and has experienced confusion over the past two days. The hospitalist service is asked to evaluate her confusion prior to discharge to rehab. She tolerated the surgery well and is recovering without complications or signs of infection. Her pain is well controlled and per RN she has not required any of the PRN opiod pain medications available. She shows no signs of acute neurological deficits other than mild confusion. She reports she hasn't been able to sleep and her thinks the same. She is A&O x3, but momentarily thought she was at formerly [facility] but quickly corrected herself. Her WBC is elevated slightly but she has no dysuria, urinary urgency or UTI symptoms. Her UA is contaminated and her CXR did not show signs of PNA. She may have some undiagnosed dementia or be showing mild signs of delirium. Past Med Surg Social Fam HX - Past Medical History Medical history: arthritis, cancer, CHF, hyperlipidemia, hypertension, renal disease Psychiatric history: anxiety - Past Surgical History Surgical History: breast surgery, cancer surgery - Social History Smoking Status: Never smoker Smokeless Tobacco Status: No Alcohol use: none Drug use: none - Family History Mother Hx Family Cancer: Yes - Constitutional Constitutional: no anorexia, no fever(s), no lethargy - EENT Eyes: no blurry vision, no change in vision, no diplopia, no spots in vision Ears: no decreased hearing, no ear discharge - Cardiovascular Cardiovascular ROS IM: no chest pain, no edema, no palpitations, no syncope - Respiratory Respiratory: no cough, no dyspnea, no stridor - Genitourinary Genitourinary: no difficulty voiding, no dysuria, no hematuria - Musculoskeletal Musculoskeletal ROS IM: no muscle weakness, no myalgias, no numbness, no tingling - Neurological Neurological ROS: confusion, no disequilibrium, no dizziness, no headache(s), no loss of vision, no numbness, no tingling, no vertigo, no weakness - Psychiatric Psychiatric: behavioral changes, hallucinations, no anxiety, no mood swings Internal Medicine - CN: Meds Aspirin Enteric Coated [Aspirin EC] 325 mg PO BID 10 Days #20 tablet. [Rx] OxyCODONE Immed Rel [Roxicodone 5 MG] 5 mg PO Q6HR PRN 7 Days #28 tablet [Rx] Atenolol [Tenormin] 50 mg PO BID 07/23/17 [History] Calcium Citrate/Vitamin D3 [Calcium Citrate - Vit D Caplet] 1 tab PO DAILY 07/23 [History] Cholecalciferol (D-3) [Vitamin D] 1,000 unit PO DAILY 07/23/17 [History] Losartan [Cozaar] 25 mg PO 1200 07/23/17 [History] Vit C/E/Zn/Coppr/Lutein/Zeaxan [Preservision Areds 2 Softgel] 1 cap PO DAILY 06/10 [History] 3 Allergy/AdvReac Type Severity Reaction Status Date / Time Amoxicillin AdvReac Diarrhea Verified 07/23/17 12:19 Sulfa (Sulfonamide AdvReac Diarrhea Verified 07/23/17 12:19 Antibiotics) Internal Medicine - CN: Exam - Constitutional Vitals: Temp Pulse Resp BP Pulse Ox 98.2 F 75 18 150/58 97 07/26/17 07:25 07/26/17 07:25 07/26/17 07:25 07/26/17 07:25 07/26/17 09:33 General appearance IM: Present: cooperative, A&O X 3 Exam: Mild confusion - Head Head exam: Present: atraumatic, normal inspection, normocephalic - Eye Eye exam: Present: EOMI, conjuntiva pink, sclera anicteric Pupils: Present: PERRL - ENT ENT exam: Present: mucous membranes moist, normal exam - Neck Neck exam general surgery: Present: full ROM, supple, trachea midline. Absent: tenderness, nuchal rigidity, thyromegaly - Respiratory Respiratory exam: Present: CTAB. Absent: rales, rhonchi, stridor, wheezes - GI/Abdominal GI/Abdominal exam IM: Present: normal bowel sounds. Absent: distended, firm, guarding, rigid - Extremities Exam Extremities exam IM: Present: warm. Absent: pedal edema - Expanded Neurological Exam Neurological exam expanded: Absent: ataxia, expressive aphasia, receptive aphasia, tremor Patient oriented to: Present: person, place, time Cranial Nerves: EOM's intact PM: Normal Cerebellar function: finger to nose: Normal - Skin Skin exam IM: Present: dry, normal color, warm. Absent: diaphoretic, petechiae , rash Internal Medicine - CN: Reslt - Labs CBC & Chem 7: 07/26/17 09:04 07/26/17 09:04 Labs: Short CBC 07/26/17 Range/Units 09:04 WBC 12.1 H (4.3-11.1) K/mcL Hgb 9.7 L (11.5-15.4) g/dL Hct 30.3 L (35.3-44.9) % Plt Count 219 (140-400) K/mcL Neutrophils # 9.2 H (1.6-8.9) K/mcL BMP 07/26/17 09:04 Sodium 136 Potassium 4.2 Chloride 104 Carbon Dioxide 27 BUN 19 Creatinine 0.95 Glucose 167 H Calcium 9.1 Liver Function 07/26/17 Range/Units 09:04 Total Bilirubin 0.5 (0.3-1.0) mg/dL AST 26 (13-39) Units/L ALT 13 (7-52) Units/L Alkaline Phosphatase 78 (34-104) Units/L Albumin 3.4 L (3.5-5.7) g/dL Urine 07/25/17 Range/Units 10:00 Urine Color Yellow (Yellow) Urine Clarity Clear (Clear) Urine pH 6.0 (5.0-8.0) pH Units Ur Specific [place] 1.028 H (1.010-1.025) Urine Protein Trace (Neg-Trace) mg/dL Urine Glucose (UA) Normal (Normal) mg/dL - Impressions Impressions Chest X-Ray 07/25/17 09:35 IMPRESSION: No acute cardiopulmonary disease. D/ / 07/25/2017 10:31:41 Dilan Stephenson MD / amanda Interpreting Provider: Dilan Stephenson MD Consult Discharge Plan - Plan Additional Instructions: Discharge Instructions: Total Knee Replacement Please call [facility] ([phone]), your Primary Care Physician, or report to the Emergency Room if you have any of the following symptoms: Nausea, vomiting, fever greater that 101.5, swelling, chest pain, shortness of breath, increased pain/redness/drainage/odor for your incision site, numbness/ tingling, or any other concerning symptoms. ACTIVITY:Weight-bearing as tolerated. You may progress off support (crutches or walker) as tolerated. MEDICATIONS: Upon discharge resume your home medications. Take all the medications as prescribed. Take a stool softener if taking narcotic pain medications. Stool softeners are only effective if you drink enough fluids. Drink 6-8 glass of water or fluids a day, unless this is not allowed for another health problem. Despite using stool softeners, if you haven't had a bowel movement in 3 days, please switch to a gentle laxative. Gentle laxatives are sold over the counter. You should have a bowel movement within 24 hours, if not call the office. You will be discharged from the hospital with a prescription for pain medication. You are encouraged to decrease the use of narcotic pain medication as tolerated. Should you require a refill, please call the office. [facility] prescribes narcotic pain medication for only 4-6 weeks after surgery. If you require pain medication beyond this time period, you may be referred to your Primary Care Physician or to the Pain Clinic for further evaluation. Plan ahead for refills on pain medication as many narcotics either need to be picked up at the office or mailed. It is best to call 48-72 hours in advance of needing a prescription refill so you don't run out of medication. To help control the post-operative pain, you may take NSAIDs (Aleve,Advil, Motrin, Ibuprofen, Naprosyn) or Tylenol as prescribed on the bottle in addition to the pain medication. ANTICOAGULATION (blood thinners): Continue your Aspirin, Lovenox or Coumadin as prescribed to help prevent a blood clot in the leg or in the lungs. As long as your incision remains dry and you tolerate the NSAIDs (Aleve, Advil, Motrin, ibuprofen, naprosyn), it is OK to use the NSAIDS while you are taking your anticoagulation medication. Should your incision start to drain, stop the NSAID and contact our office. Common symptoms of blood clot in the legs include: localized pain, swelling, calf tenderness, redness or discoloration of the skin. Blood clot in the lung symptoms include: shortness of breath, rapid pulse, sweating, and chest pain that worsens with deep breathing, coughing up blood, lightheadedness, feelings of anxiety. If you experience any of these symptoms notify your physician immediately, go to the emergency room, or if having trouble breathing, call 911. WOUND CARE: Leave the dressing on for 7 to 10days. You may change the dressing if it becomes saturated greater than 50%. Do not get the dressing wet at anytime. Wash your hands with antibacterial soap, rinse and dry prior to any wound care. If you have lindsay the visiting nurse or rehab facility can remove the stapes 10-14 days after surgery and place steri-strips across the wound. Leave the steri-strips in place until they fall off on their won. You may let water from the shower run on top of the steri-strips. If you do not have a visiting nurse or rehab facility, you will need to return to the office at 10-14 days for the lindsay to be removed. If you have itching or redness around the dressing call the office. FOLLOW-UP: Please follow up with your surgeon in the orthopedic clinic in 4 weeks from the day of surgery. If you have lindsay that need to be removed, you will need to come back to the office in 10-14 days from the day of surgery. Referrals: Cas Coleman MD [Partnered Physician] - 08/02/17 9:45 am Rhianna Harris CNP [Primary Care Provider] -
== END 2017-07-26 15:10 ==
LOC: 3NENU 10:48 → SAMDAY 10:48 → 3NENU 16:58
PROVIDERS: ADMIT Orthopaedic Surgery; ATTEND Orthopaedic Surgery

== ENCOUNTER 2018-12-16 21:15 | Observation (INO) ==
[2018-12-16] MEDS ORDERED: *HR* Labetalol 20 MG/4 ML SYRINGE IVP ONE (22:22)
--- NOTE | 2018-12-16 22:23 | Emergency Department Note ---
Disposition Clinical Impression: HTN (hypertension) Qualifiers: Hypertension type: unspecified Qualified Code(s): I10 - Essential (primary) hypertension Disposition: Still a Patient Referrals: Evan Bacon MD [Primary Care Provider] - Forms: ED Satisfaction Letter, Work/School Release Time of Disposition: 22:41 General Adult HPI - General Chief complaint: ED General Medical Stated complaint: HIGH BP Time Seen by Provider: 12/16/18 21:25 Source: patient Limitations: no limitations Nursing Notes Reviewed: Yes Vital Signs Reviewed: Yes - History of Present Illness HPI Narrative: Ms. Jimenes is an 88 yo female with PMH of HTN, CKD 3, breast cancer, OA, and osteoporosis, since the emergency department with concerns for elevated blood pressure. Reports her BP was 170's/130's at home. She does report some "fullness" in her chest and throat, but denies other symptoms. Denies vision changes, lightheadedness, numbness, tingling, weakness, chest pain, dyspnea, abdominal pain, nausea, vomiting, change in bowels, urinary changes, or difficulty with gait difficulties. She saw her product safety manager this morning and has been worried about her health today with a recent diagnosis of CKD 3. She is worried that she may need dialysis in the future. BMP drawn this morning was stable from prior labs. She is on atenolol and losartan at home and took extra doses of each today due to her BP being elevated. Pain Scale: 0 - Related Data Home Medications Medication Instructions Recorded Confirmed Atenolol [Tenormin] 50 mg PO BID 07/23/17 07/23/17 Calcium Citrate/Vitamin D3 1 tab PO DAILY 07/23/17 07/23/17 [Calcium Citrate - Vit D Caplet] Cholecalciferol (D-3) [Vitamin D] 1,000 unit PO DAILY 07/23/17 07/23/17 Losartan [Cozaar] 25 mg PO 1200 07/23/17 07/23/17 Vit C/E/Zn/Coppr/Lutein/Zeaxan 1 cap PO DAILY 07/23/17 07/23/17 [Preservision Areds 2 Softgel] Previous Rx's Medication Instructions Recorded Aspirin Enteric Coated [Aspirin EC] 325 mg PO BID 10 Days #20 tablet. 07/22/17 Acetaminophen [8 Hour] 650 mg PO Q6H PRN 7 Days #28 07/26/17 tablet.er Aspirin Enteric Coated [Aspirin EC] 325 mg PO BID 10 Days #20 tablet. 07/26/17 Lidocaine Patch [Lidoderm 5% patch] 1 each TP DAILY PRN 30 Days #30 07/26/17 adh..patch cephALEXin [Keflex] 500 mg PO QID 7 Days #28 capsule 07/26/17 Allergies Allergy/AdvReac Type Severity Reaction Status Date / Time Amoxicillin AdvReac Diarrhea Verified 07/23/17 12:19 Sulfa (Sulfonamide AdvReac Diarrhea Verified 07/23/17 12:19 Antibiotics) Review of Systems: Denies vision changes, lightheadedness, numbness, tingling, weakness, chest pain, dyspnea, abdominal pain, nausea, vomiting, change in bowels, urinary changes, or difficulty with gait difficulties All systems ED: reviewed and negative except as stated. Review of Systems: As Per HPI Past Medical History - Past Medical History Medical history: Reports: arthritis, cancer, CHF, hyperlipidemia, hypertension, renal disease Surgical history: Reports: breast surgery, cancer surgery Psychiatric history: Reports: anxiety - Social History Smoking Status: Never smoker Smokeless Tobacco Status: No Alcohol use: Reports: none Drug use: Reports: none Physical Exam GEN: No acute distress, A&O3 HEAD: Atraumatic, normocephalic EYES: Pupils symmetric, sclera white, conjunctiva pink HEART: Irregular, frequent PVCs on the monitor, normal S1 and S2, no murmurs LUNGS: Clear to auscultation bilaterally, no wheezes, rhonchi, or crackles ABD: Soft, nontender, nondistended, bowel sounds present EXT: Trace pedal edema noted, pulses 2/4 NEURO: No focal deficits, cooperative with exam - General Limitations: no limitations General appearance: alert, in no apparent distress Course Vital Signs Temperature 97.5 F L 12/16/18 21:19 Pulse Rate 75 12/16/18 21:19 Respiratory Rate 16 12/16/18 21:19 Blood Pressure 217/82 12/16/18 21:19 O2 Sat by Pulse Oximetry 95 12/16/18 21:19 Temperature 97.5 F L 12/16/18 21:19 Pulse Rate 70 12/16/18 21:29 Respiratory Rate 16 12/16/18 21:19 Blood Pressure 207/95 12/16/18 21:29 O2 Sat by Pulse Oximetry 97 12/16/18 21:31 Oxygen Delivery Oxygen Delivery Room Air Medical Decision Making - MDM Narrative Medical decision making narrative: Elevated blood pressure, 217/82, in an 88-year-old female with only complaint of very nonspecific symptom of "fullness in her chest and throat". She is having frequent PVCs on the monitor. Will check EKG and labs for any evidence of new end-organ damage. Will give a dose of labetolol now. Disposition is pending. See attending note for final labs and work-up. - EKG Data EKG #1 EKG attestation: Yes I reviewed and interpreted this EKG. EKG shows normal: sinus rhythm, axis, intervals Rate: normal Rhythm: PVC's Voltage: c/w LVH QRS morphology: J-point elevation (lateral leads) Ectopy: PVC
--- NOTE | 2018-12-16 22:37 | Emergency Department Note ---
Disposition Clinical Impression: PVC's (premature ventricular contractions) HTN (hypertension) Qualifiers: Hypertension type: unspecified Qualified Code(s): I10 - Essential (primary) hypertension Disposition: Admitted As Inpatient Condition: Good Referrals: Evan Bacon MD [Primary Care Provider] - Forms: ED Satisfaction Letter, Work/School Release Time of Disposition: 23:48 General Adult HPI - General Chief complaint: ED General Medical Stated complaint: HIGH BP Time Seen by Provider: 12/16/18 21:25 Source: patient Limitations: no limitations - History of Present Illness Pain Scale: 0 - Related Data Home Medications Medication Instructions Recorded Confirmed Atenolol [Tenormin] 50 mg PO BID 07/23/17 07/23/17 Calcium Citrate/Vitamin D3 1 tab PO DAILY 07/23/17 07/23/17 [Calcium Citrate - Vit D Caplet] Cholecalciferol (D-3) [Vitamin D] 1,000 unit PO DAILY 07/23/17 07/23/17 Losartan [Cozaar] 25 mg PO 1200 07/23/17 07/23/17 Vit C/E/Zn/Coppr/Lutein/Zeaxan 1 cap PO DAILY 07/23/17 07/23/17 [Preservision Areds 2 Softgel] Previous Rx's Medication Instructions Recorded Aspirin Enteric Coated [Aspirin EC] 325 mg PO BID 10 Days #20 tablet. 07/22/17 Acetaminophen [8 Hour] 650 mg PO Q6H PRN 7 Days #28 07/26/17 tablet.er Aspirin Enteric Coated [Aspirin EC] 325 mg PO BID 10 Days #20 tablet. 07/26/17 Lidocaine Patch [Lidoderm 5% patch] 1 each TP DAILY PRN 30 Days #30 07/26/17 adh..patch cephALEXin [Keflex] 500 mg PO QID 7 Days #28 capsule 07/26/17 Allergies Allergy/AdvReac Type Severity Reaction Status Date / Time Amoxicillin AdvReac Diarrhea Verified 07/23/17 12:19 Sulfa (Sulfonamide AdvReac Diarrhea Verified 07/23/17 12:19 Antibiotics) Past Medical History - Past Medical History Medical history: Reports: arthritis, cancer, CHF, hyperlipidemia, hypertension, renal disease Surgical history: Reports: breast surgery, cancer surgery Psychiatric history: Reports: anxiety - Social History Smoking Status: Never smoker Smokeless Tobacco Status: No Alcohol use: Reports: none Drug use: Reports: none Physical Exam - General Limitations: no limitations General appearance: alert, in no apparent distress Course Vital Signs Temperature 97.5 F L 12/16/18 21:19 Pulse Rate 75 12/16/18 21:19 Respiratory Rate 16 12/16/18 21:19 Blood Pressure 217/82 12/16/18 21:19 O2 Sat by Pulse Oximetry 95 12/16/18 21:19 Temperature 97.5 F L 12/16/18 21:19 Pulse Rate 66 12/16/18 22:51 Respiratory Rate 16 12/16/18 22:51 Blood Pressure 157/84 12/16/18 22:51 O2 Sat by Pulse Oximetry 97 12/16/18 22:51 Oxygen Delivery Oxygen Delivery Room Air Medical Decision Making - MDM Narrative Medical decision making narrative: Prolonged disposition time due to lab issues. Unable to get chemistry results b/c "the analyzer backed things up and we didn't know." pt has a very long disposition time and still waiting on lab results. will go ahead and arrange for admission. her BP did improve after the medication here in the ER. However, her blood pressures going back up in the 170s again. I feel based on her age and the fact her blood pressures greater than 200 that we should admit her for blood press ure control and possible re-adjustments of her hypertension medications. Incidentally, patient did have earlier lab work drawn today that showed her chemistries to be within normal limits. - Medical Records Medical records reviewed: Yes I reviewed the patient's medical records. - Lab Data Lab results reviewed: Yes I reviewed the patient's lab results. Result diagrams: 12/16/18 23:13 Lab Results 12/16/18 12/16/18 Range/Units 22:36 23:13 WBC 7.1 (4.3-11.1) K/mcL RBC 4.36 (3.82-4.97) M/mcL Hgb 13.1 (11.5-15.4) g/dL Hct 41.0 (35.3-44.9) % MCV 94.0 (83.0-100.0) fL MCH 30.0 (28.0-33.3) pg MCHC 32.0 (31.6-35.5) g/dL RDW 13.2 (11.5-14.5) % Plt Count 175 (140-400) K/mcL MPV 10.0 (9.4-12.4) fL Immature Gran % 0.1 (0-4) % Seg Neutrophils % 46.5 % Lymphocytes % 39.0 % Monocytes % 10.7 % Eosinophils % 3.4 % Basophils % 0.3 % Neutrophils # 3.3 (1.6-8.9) K/mcL Lymphocytes # 2.8 (0.6-4.6) K/mcL Monocytes # 0.8 (0.0-1.3) K/mcL Eosinophils # 0.2 (0.0-0.6) K/mcL Basophils # 0.0 (0.0-0.2) K/mcL Urine Color Yellow (Yellow) Urine Clarity Clear (Clear) Urine pH 7.5 (5.0-8.0) pH Units Ur Specific [place] 1.007 L (1.010-1.025) Urine Protein Negative (Neg-Trace) mg/dL Urine Glucose (UA) Normal (Normal) mg/dL Urine Ketones Negative (Negative) mg/dL Urine Blood Negative (Negative) Urine Nitrite Negative (Negative) Urine Bilirubin Negative (Negative) Urine Urobilinogen Normal (Normal) mg/dL Ur Leukocyte Esterase Negative (Negative) - Radiology Data Radiology results reviewed: Yes I reviewed the patient's radiology results. - EKG Data EKG #1 EKG attestation: Yes I reviewed and interpreted this EKG. EKG results narrative: EKG shows a rate of 67. PVC present. Normal axis. All intervals are normal. J-point elevation in the lateral leads with evidence of left ventricular hypertrophy. Attestation Statement - Attestation Attestation: I examined this patient and my medical decision-making was reviewed with the Resident Physician. I agree with the documented findings, disposition and treatment plan as described except to the extent set forth below. 88 showed female presents emergency room for hypotension issues. She denies any symptoms. States she was told today that her blood pressure is elevated 5 her mechanical cad designer that she saw for the first time. She saw him for chronic kidney disease. She took her blood pressure tonight was greater than 200. She is asymptomatic. She denies any headache or vision changes. No speech problem. No paresthesias or numbness. She states she might of had some chest pressure fullness but was no specific chest pain or any shortness of breath. Her EKG shows some left ventricular hypertrophy findings. She does have some J-point elevation as well. There are some PVCs present. On the monitor in the room patient is not out of bigeminy. She has on atenolol and Cozaar at home. She took an extra dose of these at each of these medications prior to coming to the emergency room. We will check some cardiac workup on her. I do not feel she needs a CT of the head at this time as she is asymptomatic and has no headache complaints.
[2018-12-16 22:56] LABS: Bilirubin,Urine Negative (Negative); Blood,Urine Negative (Negative); Clarity,Urine Clear (Clear); Color,Urine Yellow (Yellow); Glucose,Urine (UA) Normal (Normal); Ketones,Urine Negative (Negative); Leukocyte Esterase,Urine Negative (Negative); Nitrite,Urine Negative (Negative); PH,Urine 7.5 pH Units (5.0-8.0); Protein,Urine Negative (Neg-Trace); Specific Gravity,Urine 1.007 (1.010-1.025); Urobilinogen,Urine Normal (Normal)
[2018-12-16 23:26] LABS: Basophils % 0.3 %; Eosinophils # 0.2 K/mcL (0.0-0.6); Eosinophils % 3.4 %; Hemoglobin 13.1 g/dL (11.5-15.4); Immature Granulocytes % 0.1 % (0-4); Lymphocytes # 2.8 K/mcL (0.6-4.6); Monocytes # 0.8 K/mcL (0.0-1.3); Monocytes % 10.7 %; Neutrophils # 3.3 K/mcL (1.6-8.9); Platelet Count 175 K/mcL (140-400); Red Blood Count 4.36 M/mcL (3.82-4.97); Red Cell Distribution Width 13.2 % (11.5-14.5); Segmented Neutrophils % 46.5 %; White Blood Count 7.1 K/mcL (4.3-11.1)
[2018-12-16 23:51] LABS: BUN/Creatinine Ratio 19 (6-26); Blood Urea Nitrogen 20 mg/dL (8-23); Calcium 9.2 mg/dL (8.6-10.3); Carbon Dioxide 28 mEq/L (23-29); Chloride 107 mEq/L (98-107); Glucose 100 mg/dL (70-105); Osmolality,Calculated 295 (280-300); Potassium 4.1 mEq/L (3.5-5.1); Sodium 141 mEq/L (136-145); eGFR For African Americans > 60 (> 60); eGFR For Non-African Americans 51 (> 60)
[2018-12-16 23:55] LABS: Troponin I < 0.03 ng/mL (< 0.04)
[2018-12-17 00:05] LABS: Thyroid Stimulating Hormone 2.738 mcIU/mL (0.340-5.600)
[2018-12-17 01:17] LABS: Magnesium 2.5 mg/dL (1.6-2.6)
[2018-12-17] MEDS ORDERED: Ondansetron 4 MG/2 ML VIAL IVP PRN (02:46)
[2018-12-17] MEDS ORDERED: Naloxone 0.4 MG/ML INJ IVP PRN (02:46)
[2018-12-17] MEDS ORDERED: Acetaminophen 325 MG TABLET PO PRN (02:46)
[2018-12-17 04:12] LABS: Basophils % 0.5 %; Eosinophils # 0.1 K/mcL (0.0-0.6); Eosinophils % 1.9 %; Hematocrit 40.8 % (35.3-44.9); Immature Granulocytes % 0.3 % (0-4); Lymphocytes # 1.4 K/mcL (0.6-4.6); Lymphocytes % 22.5 %; Mean Corpuscular HGB Conc 31.9 g/dL (31.6-35.5); Mean Corpuscular Hemoglobin 29.7 pg (28.0-33.3); Mean Corpuscular Volume 93.4 fL (83.0-100.0); Mean Platelet Volume 10.1 fL (9.4-12.4); Monocytes # 0.7 K/mcL (0.0-1.3); Monocytes % 10.8 %; Platelet Count 171 K/mcL (140-400); Red Blood Count 4.37 M/mcL (3.82-4.97); Red Cell Distribution Width 13.3 % (11.5-14.5); White Blood Count 6.2 K/mcL (4.3-11.1)
[2018-12-17 04:36] LABS: Alanine Aminotransferase 14 Units/L (7-52); Albumin 3.8 g/dL (3.5-5.7); Albumin/Globulin Ratio 1.4 (1.1-2.2); Alkaline Phosphatase 63 Units/L (34-104); Aspartate Amino Transferase 22 Units/L (13-39); BUN/Creatinine Ratio 18 (6-26); Bilirubin,Total 0.4 mg/dL (0.3-1.0); Blood Urea Nitrogen 17 mg/dL (8-23); Calcium 9.2 mg/dL (8.6-10.3); Carbon Dioxide 25 mEq/L (23-29); Chloride 109 mEq/L (98-107); Chol/HDL Ratio 3.4 (0-4.9); Cholesterol 179 mg/dL (< 200); Globulin 2.8 g/dL (2.4-3.5); Glucose 109 mg/dL (70-105); HDL Cholesterol 52 mg/dL (40-59); LDL Cholesterol,Calculated 114 mg/dL (0-99); Magnesium 2.4 mg/dL (1.6-2.6); Osmolality,Calculated 294 (280-300); Potassium 3.8 mEq/L (3.5-5.1); Sodium 141 mEq/L (136-145); Total Protein 6.6 g/dL (6.4-8.9); Triglycerides 63 mg/dL (< 150); Troponin I < 0.03 ng/mL (< 0.04); eGFR For African Americans > 60 (> 60); eGFR For Non-African Americans 56 (> 60)
--- NOTE | 2018-12-17 04:50 | Internal Med History&Physical ---
Date of Encounter: 12/17/18 Time of Encounter: 02:30 Internal Medicine - H&P: HPI Chief complaint: uncontrolled HTN Admitted From: Emergency Dept Plans for Post Hospital Care: Home History of present illness: Ms. Jimenes is an 88 year old female who presents for complaints of uncontrolled hypertension. She presented to ER with systolic blood pressure in excess of 200. She was given a dose of labetalol and admitted to hospitalist service. There was also report that she was having some chest tightness upon presentatio n. Upon my assessment of the patient, patient blood pressure remained elevated. I did order a one-time dose of hydralazine which seemed to improve her blood pressure. She was nervous that she was alone without her . Her came to the bedside about 20 minutes later and she calmed down. She denies any chest pain presently. She denies any dyspnea or diaphoresis. She states that her blood pressure normally runs about 120 -130 systolic. Tonight, her blood pressure exceeded 180 at home and this made her nervous to the point she sought care in the ER. She denies any change in medications, new medications, and/or [id number]-[id number] cold medication use. She denies any fevers, chills, cough, vomiting, or diarrhea. Past Med Surg Social Fam HX - Past Medical History Attestation: Yes The following information was validated with the patient. Source: patient, old records reviewed, obtained from family Medical history: arthritis, cancer, CHF, hyperlipidemia, hypertension, renal disease Additional medical history: hx ulcers. hx breast Cancer. hx of colon polyps. Rosacea. Irriant dermatitis. Dernatitis. Hematuria. keratosis Psychiatric history: anxiety - Past Surgical History Surgical History: breast surgery, cancer surgery Additional surgical history: tonsillectomy as a child. appendectomy -Open 1965. EGD's/colonoscopy x5. cataract left eye 2017 - Social History Smoking Status: Never smoker Smokeless Tobacco Status: No Alcohol use: none Drug use: none Current living situation: Home, With Family Activity Level: Independent ambulation Recent Out of Country Travel Within the Last 8 Weeks: No - Family History Mother Living Status: Age at : 67 Cause of : heart failure Hx Family Cancer: Yes Father Living Status: Age at : 57 Cause of : leukemia Internal Medicine - H&P: Meds Atenolol [Tenormin] 50 mg PO BID 07/23/17 [History] Calcium Citrate/Vitamin D3 [Calcium Citrate - Vit D Caplet] 1 tab PO DAILY 07/23/17 [History] Cholecalciferol (D-3) [Vitamin D] 1,000 unit PO DAILY 07/23/17 [History] Losartan [Cozaar] 25 mg PO 1200 07/23/17 [History] Vit C/E/Zn/Coppr/Lutein/Zeaxan [Preservision Areds 2 Softgel] 1 cap PO DAILY 07/23/17 [History] Acetaminophen [8 Hour] 650 mg PO Q6H PRN 7 Days #28 tablet.er 07/26/17 [Rx] Allergy/AdvReac Type Severity Reaction Status Date / Time Amoxicillin AdvReac Diarrhea Verified 12/17/18 00:01 Sulfa (Sulfonamide AdvReac Diarrhea Verified 12/17/18 00:01 Antibiotics) - Constitutional Constitutional: no chills, no fever(s), no night sweats - EENT Eyes: no blurry vision, no change in vision Ears: no ear pain, no tinnitus Nose, mouth and throat: no nasal congestion, no sinus pressure, no sore throat - Cardiovascular Cardiovascular ROS IM: chest pain, no diaphoresis, no dyspnea, no dyspnea on exertion - Respiratory Respiratory: no cough, no chest congestion, no excessive phlegm production - Gastrointestinal Gastrointestinal: no abdominal pain, no diarrhea, no hematemesis, no hematochezia, no melena, no vomiting - Genitourinary Genitourinary: no dysuria, no flank pain, no hematuria - Musculoskeletal Musculoskeletal ROS IM: no arthralgias, no back pain - Integumentary Integumentary IM: no rash, no jaundice - Neurological Neurological ROS: no dizziness, no focal weakness, no frequent falls, no headache(s) - Psychiatric Psychiatric: anxiety, no depression - Endocrine Endocrine IM: no polydipsia, no polyphagia, no polyuria - Allergic/Immunologic Allergic/Immunologic: no GI upset with certain foods - Constitutional Vitals: Temp Pulse Resp BP Pulse Ox 97.7 F 93 16 130/74 97 12/17/18 03:05 12/17/18 03:05 12/17/18 03:05 12/17/18 03:05 12/17/18 03:05 General appearance: Present: cooperative, A&O X 3, pleasant, answers questions appropriately Exam: mildly anxious -- resolved after arrived - Head Head exam: Present: atraumatic, normal inspection - Eye Eye exam: Present: EOMI, PERRL. Absent: scleral icterus Pupils: Present: normal accommodation - ENT ENT exam: Present: mucous membranes dry, normal exam, normal oropharynx - Neck Neck exam general surgery: Present: full ROM, supple, trachea midline. Absent: tenderness, nuchal rigidity, thyromegaly - Respiratory Respiratory exam: Present: CTAB. Absent: chest wall tenderness, rales, rhonchi, wheezes - Cardiovascular Cardiovascular exam: Present: RRR, +S1, +S2, systolic murmur. Absent: diastolic murmur - GI/Abdominal GI/Abdominal exam: Present: normal bowel sounds, soft. Absent: guarding, hepatomegaly, mass, rebound, splenomegaly, tenderness - Extremities Exam Extremities exam: Present: normal capillary refill, warm, radial pulses palpable and symmetrical. Absent: calf tenderness, pedal edema, tenderness - Back Exam Back exam: Present: normal inspection. Absent: CVA tenderness (L), CVA tenderness (R) - Neurological Exam Neurological exam: Present: alert, CN II-XII intact, oriented X3, no focal deficits, strengths equal and symetr throughout - Psychiatric Psychiatric exam: Present: normal affect, normal mood - Skin Skin exam: Present: dry, intact, warm Internal Med - H&P Results - Labs CBC & Chem 7: 12/17/18 03:54 12/17/18 03:54 Labs: Short CBC 12/16/18 12/17/18 Range/Units 23:13 03:54 WBC 7.1 6.2 (4.3-11.1) K/mcL Hgb 13.1 13.0 (11.5-15.4) g/dL Hct 41.0 40.8 (35.3-44.9) % Plt Count 175 171 (140-400) K/mcL Neutrophils # 3.3 4.0 (1.6-8.9) K/mcL BMP 12/16/18 12/17/18 23:13 03:54 Sodium 141 141 Potassium 4.1 3.8 Chloride 107 109 H Carbon Dioxide 28 25 BUN 20 17 Creatinine 1.03 0.95 Glucose 100 109 H Calcium 9.2 9.2 Cardiac Enzymes 08/26/19 08/27/19 Range/Units 23:13 03:54 Troponin I < 0.03 < 0.03 (< 0.04) ng/mL Liver Function 12/17/18 Range/Units 03:54 Total Bilirubin 0.4 (0.3-1.0) mg/dL AST 22 (13-39) Units/L ALT 14 (7-52) Units/L Alkaline Phosphatase 63 (34-104) Units/L Albumin 3.8 (3.5-5.7) g/dL Urine 12/16/18 Range/Units 22:36 Urine Color Yellow (Yellow) Urine Clarity Clear (Clear) Urine pH 7.5 (5.0-8.0) pH Units Ur Specific [place] 1.007 L (1.010-1.025) Urine Protein Negative (Neg-Trace) mg/dL Urine Glucose (UA) Normal (Normal) mg/dL - EKG Data -: EKG Interpreted by Myself - EKG Data Prior EKG available for review: no EKG comments: 12/17/18 05:49 NSR; PVC's, no acute ST-T changes - Assessment and Plan (1) Uncontrolled hypertension Current Visit: Yes Status: Acute Assessment and plan: 1. Resume home medication and monitor closely. 2. Will add PRN hydralazine for SBP > 160 3. Trend troponins and EKG's. 4. Monitor on telemetry. 5. If BP not controlled, she may need continuous IV infusion of nicardipine or other anti-hypertensive. 6. Presently, BP has stabilized with the above maneuvers. (2) Chest pain Current Visit: Yes Status: Acute Assessment and plan: 1. Trend troponins and EKG's. 2. Order ECHO. 3. May need stress test, likely outpatient if above negative. 4. Likely due ot uncontrolled HTN. Qualifiers: Chest pain type: precordial pain Qualified Code(s): R07.2 - Precordial pain (3) DVT prophylaxis Current Visit: Yes Status: Acute Assessment and plan: 1. Heparin SQ.
[2018-12-17] MEDS ORDERED: *HR* Heparin 5,000 UNIT/ML VIAL SQ SCH (06:00)
[2018-12-17] MEDS ORDERED: Cholecalciferol (D-3) 1,000 UNIT (25MCG) TABLET PO SCH (09:00)
[2018-12-17] MEDS ORDERED: Multivit/Ca/Min/Fe/FA 1 TAB TABLET PO SCH (09:00)
--- NOTE | 2018-12-17 11:21 | Discharge Summary ---
- NOTES TO OUTPATIENT PROVIDER Notes to Outpatient Provider: f/u with PCP in one week. Date of Encounter: 12/17/18 Time of Encounter: 11:19 - Discharge Diagnosis (1) Uncontrolled hypertension Priority: Primary Status: Acute (2) DVT prophylaxis Priority: Secondary Status: Acute Hospital course: Ms. Jimenes is an 88 year old female with known past medical history of hypertension and hyperlipidemia pt presented to ER with uncontrolled hypertension. She presented to ER with systolic blood pressure in excess of 200. She was given a dose of labetalol and admitted to hospitalist service. She denied any chest pain/shortness of breath. 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 Her serial troponin came back as negative. She was started on home dose Atenolol and inc her Cozaar to 100mg . Now her BP in 140-150's. So will d/c her home in stable condition today and recommend to f.u with her PCP in one week. Patient stated she never had chest pain. - Time Spent with Patient Total time spent providing and/or coordinating discharge services: - Discharge Medications Prescriptions: New Losartan Potassium [Cozaar] 100 mg PO DAILY #30 tab Continued Calcium Citrate/Vitamin D3 [Calcium Citrate - Vit D Caplet] 1 tab PO DAILY Vit C/E/Zn/Coppr/Lutein/Zeaxan [Preservision Areds 2 Softgel] 1 cap PO DAILY Atenolol [Tenormin] 50 mg PO BID Cholecalciferol (D-3) [Vitamin D] 1,000 unit PO DAILY Acetaminophen [8 Hour] 650 mg PO Q6H PRN 7 Days #28 tablet.er PRN Reason: Pain Discontinued Losartan [Cozaar] 25 mg PO 1200 Home Medications: Atenolol [Tenormin] 50 mg PO BID 07/23/17 [History] Calcium Citrate/Vitamin D3 [Calcium Citrate - Vit D Caplet] 1 tab PO DAILY 07/23/17 [History] Cholecalciferol (D-3) [Vitamin D] 1,000 unit PO DAILY 07/23/17 [History] Vit C/E/Zn/Coppr/Lutein/Zeaxan [Preservision Areds 2 Softgel] 1 cap PO DAILY 07/23/17 [History] Acetaminophen [8 Hour] 650 mg PO Q6H PRN 7 Days #28 tablet.er 07/26/17 [Rx] Losartan Potassium [Cozaar] 100 mg PO DAILY #30 tab 12/17/18 [Rx] Allergies/Adverse Reactions: Allergy/AdvReac Type Severity Reaction Status Date / Time Amoxicillin AdvReac Diarrhea Verified 12/17/18 00:01 Sulfa (Sulfonamide AdvReac Diarrhea Verified 12/17/18 00:01 Antibiotics) Date of admission: 12/16/18 23:59 Primary care physician: Evan Bacon MD - Constitutional Vitals: Temp Pulse Resp BP Pulse Ox 97.5 F L 86 16 162/93 97 12/17/18 07:55 12/17/18 07:55 12/17/18 07:55 12/17/18 10:33 12/17/18 07:55 General appearance: Present: cooperative, A&O X 3, pleasant, answers questions appropriately Exam: Gen: Alert, awake, Oriented to time,place and person Chest: Diminished breath sounds B/L, No wheezing, No crackles, No rales Heart: S1S2+ RRR No murmurs Abd: Soft, NT, BS +, No organomegaly Ext: No edema, pulses are palpable, No calf tenderness Neuro : No acute focal neuro deficits noticed Skin: No rash. - Patient Status Disposition: Home, Self-Care Condition: Good Overall status at discharge: patient is back to baseline - Discharge Instructions Follow Up With: Evan Bacon MD [Primary Care Provider] - - Diet and Activity Activity: increase activity as tolerated Diet: low salt diet
[2018-12-17 11:48] VITALS: BP 125/73
== END 2018-12-17 12:22 | disposition home or self-care (01) ==
LOC: EMEROOARM 21:15 → 3BNU 21:15
PROVIDERS: ADMIT Pediatrics; ATTEND Pediatrics

== ENCOUNTER 2019-05-05 02:06 | Inpatient (IN) ==
[2019-05-05] MEDS ORDERED: Isovue-370 500 ML BOTTLE IVP ONE ×2 (02:07→04:32)
[2019-05-05 02:44] LABS: Bilirubin,Urine Negative (Negative); Blood,Urine Small (Negative); Clarity,Urine Clear (Clear); Color,Urine Yellow (Yellow); Glucose,Urine (UA) Normal (Normal); Ketones,Urine Negative (Negative); Leukocyte Esterase,Urine Negative (Negative); Nitrite,Urine Negative (Negative); PH,Urine 7.5 pH Units (5.0-8.0); Protein,Urine 30 mg/dL (Neg-Trace); Specific Gravity,Urine 1.013 (1.010-1.025); Urobilinogen,Urine Normal (Normal)
[2019-05-05 02:46] LABS: Bacteria,Urine None Seen per hpf (None-Few); Hyaline Casts,Urine Few per lpf (None-Few); Squamous Epithelial Cell,Urine Many per lpf (None-Few)
[2019-05-05] MEDS ORDERED: 0.9 % Sodium Chloride 1,000 ML IVC SCH (03:15)
[2019-05-05] MEDS ORDERED: *HR* LORazepam 2 MG/ML VIAL IVP ONE (03:32)
[2019-05-05 03:55] LABS: Hemoglobin 14.4 g/dL (11.5-15.4); Mean Corpuscular HGB Conc 33.5 g/dL (31.6-35.5); Mean Corpuscular Hemoglobin 30.7 pg (28.0-33.3); Mean Corpuscular Volume 91.7 fL (83.0-100.0); Mean Platelet Volume 9.9 fL (9.4-12.4); Platelet Count 251 K/mcL (140-400); Red Blood Count 4.69 M/mcL (3.82-4.97); Red Cell Distribution Width 12.9 % (11.5-14.5)
[2019-05-05 04:00] LABS: INR 0.9; Prothrombin Time 10.1 Seconds (9.4-12.1)
[2019-05-05 04:02] LABS: Activated Partial Thrombo Time 31.4 Seconds (26.0-36.0)
[2019-05-05 04:16] LABS: Calcium 9.8 mg/dL (8.6-10.3); Potassium 3.7 mEq/L (3.5-5.1)
[2019-05-05 04:24] LABS: Troponin I 0.12 ng/mL (< 0.04)
[2019-05-05] MEDS ORDERED: niCARdipine 20 MG/200 ML MLS IVC SCH (05:45)
[2019-05-05] MEDS ORDERED: Acetaminophen 325 MG TABLET PO PRN (07:29)
[2019-05-05] MEDS ORDERED: Naloxone 0.4 MG/ML INJ IVP PRN (07:29)
[2019-05-05] MEDS ORDERED: *HR* LORazepam 0.5 MG TABLET PO PRN (07:32)
[2019-05-05] MEDS ORDERED: Metoprolol XL (24 HR) Succ 25 MG TAB.ER.24H PO SCH (09:06)
[2019-05-05] MEDS: Aspirin Enteric Coated 81 MG Tablet PO SCH (09:49)
[2019-05-05] MEDS ORDERED: *HR* Heparin 5,000 UNIT/ML VIAL IVP ONE (12:00)
[2019-05-05] MEDS ORDERED: *HR* Heparin 5,000 UNIT/ML VIAL IVP PRN ×2 (12:00)
[2019-05-05 13:12] LABS: Hematocrit 46.6 % (35.3-44.9); Mean Corpuscular HGB Conc 32.2 g/dL (31.6-35.5); Mean Corpuscular Hemoglobin 31.1 pg (28.0-33.3); Mean Corpuscular Volume 96.5 fL (83.0-100.0); Platelet Count 251 K/mcL (140-400); Red Blood Count 4.83 M/mcL (3.82-4.97); Red Cell Distribution Width 12.9 % (11.5-14.5); White Blood Count 9.8 K/mcL (4.3-11.1)
[2019-05-05] MEDS: carvediloL 6.25 MG TABLET PO SCH ×2 (13:12→17:20)
[2019-05-05] MEDS: Heparin 25,000 UNIT/250 ML D5W 25,000 UNIT/250 ML IV.SOLN IVC SCH (13:13)
[2019-05-05 13:17] LABS: Prothrombin Time 11.1 Seconds (9.4-12.1)
[2019-05-06 02:40] LABS: Basophils % 0.4 %; Eosinophils # 0.1 K/mcL (0.0-0.6); Eosinophils % 1.2 %; Hematocrit 44.5 % (35.3-44.9); Hemoglobin 14.5 g/dL (11.5-15.4); Immature Granulocytes % 0.4 % (0-4); Lymphocytes # 2.1 K/mcL (0.6-4.6); Lymphocytes % 21.4 %; Mean Corpuscular HGB Conc 32.6 g/dL (31.6-35.5); Mean Corpuscular Hemoglobin 31.2 pg (28.0-33.3); Mean Corpuscular Volume 95.7 fL (83.0-100.0); Mean Platelet Volume 10.1 fL (9.4-12.4); Monocytes # 1.1 K/mcL (0.0-1.3); Monocytes % 10.9 %; Neutrophils # 6.4 K/mcL (1.6-8.9); Platelet Count 257 K/mcL (140-400); Red Blood Count 4.65 M/mcL (3.82-4.97); Red Cell Distribution Width 13.1 % (11.5-14.5); Segmented Neutrophils % 65.7 %; White Blood Count 9.7 K/mcL (4.3-11.1)
[2019-05-06 02:58] LABS: Albumin 3.8 g/dL (3.5-5.7); Albumin/Globulin Ratio 1.3 (1.1-2.2); Bilirubin,Total 0.4 mg/dL (0.3-1.0); Calcium 9.3 mg/dL (8.6-10.3); Chol/HDL Ratio 2.8 (0-4.9); Magnesium 2.1 mg/dL (1.6-2.6); Potassium 3.9 mEq/L (3.5-5.1); Total Protein 6.8 g/dL (6.4-8.9)
[2019-05-06] MEDS ORDERED: *HR* LORazepam 0.5 MG TABLET PO ONE (04:18)
[2019-05-06] MEDS ORDERED: Haloperidol Lactate 5 MG/ML VIAL IM ONE (05:26)
[2019-05-06 08:26] LABS: Troponin I 0.45 ng/mL (< 0.04)
[2019-05-06] MEDS: Aspirin Enteric Coated 81 MG Tablet PO SCH (08:59)
[2019-05-06] MEDS: carvediloL 6.25 MG TABLET PO SCH ×2 (08:59→17:11)
[2019-05-06] MEDS ORDERED: traZODone 50 MG TABLET PO PRN (11:35)
[2019-05-06] MEDS ORDERED: Melatonin 3 MG TABLET PO PRN (11:35)
[2019-05-06] MEDS ORDERED: *HR* LORazepam 0.5 MG TABLET PO PRN ×2 (11:37→12:00)
[2019-05-06] MEDS ORDERED: carvediloL 6.25 MG TABLET PO ONE (12:30)
[2019-05-06] MEDS ORDERED: carvediloL 6.25 MG TABLET PO SCH (17:00)
[2019-05-06] MEDS: Heparin 25,000 UNIT/250 ML D5W 25,000 UNIT/250 ML IV.SOLN IVC SCH ×2 (20:13→23:17)
[2019-05-06] MEDS ORDERED: Melatonin 3 MG TABLET PO SCH (21:00)
[2019-05-07 06:20] LABS: Basophils % 0.4 %; Eosinophils % 0.3 %; Hematocrit 43.3 % (35.3-44.9); Hemoglobin 14.4 g/dL (11.5-15.4); Immature Granulocytes % 0.4 % (0-4); Lymphocytes % 21.1 %; Mean Corpuscular HGB Conc 33.3 g/dL (31.6-35.5); Mean Corpuscular Hemoglobin 30.4 pg (28.0-33.3); Mean Corpuscular Volume 91.5 fL (83.0-100.0); Mean Platelet Volume 10.2 fL (9.4-12.4); Monocytes # 0.9 K/mcL (0.0-1.3); Monocytes % 9.7 %; Neutrophils # 6.3 K/mcL (1.6-8.9); Platelet Count 281 K/mcL (140-400); Red Blood Count 4.73 M/mcL (3.82-4.97); Red Cell Distribution Width 13.5 % (11.5-14.5); Segmented Neutrophils % 68.1 %; White Blood Count 9.3 K/mcL (4.3-11.1)
[2019-05-07 06:43] LABS: Calcium 9.6 mg/dL (8.6-10.3); Potassium 3.9 mEq/L (3.5-5.1)
[2019-05-07] MEDS ORDERED: NON-FORMULARY MEDICATION 1 EACH EACH (Losartan Potassium [Cozaar] 50 MG) PO SCH (09:00)
[2019-05-07] MEDS: Aspirin Enteric Coated 81 MG Tablet PO SCH (10:23)
[2019-05-07] MEDS: carvediloL 6.25 MG TABLET PO SCH ×2 (10:24→16:21)
[2019-05-07 15:45] VITALS: BP 148/70
[2019-05-08] MEDS ORDERED: *HR* Heparin 5,000 UNIT/ML VIAL SQ SCH ×2 (06:00)
[2019-05-08] MEDS ORDERED: *HR* LORazepam 0.5 MG TABLET PO PRN (09:00)
== END 2019-05-07 18:28 | disposition home health service (06) | DRG 280 ==
LOC: CDU 02:06 → EMEROOARM 02:06 → CDU 07:47 → SUATTDRO 05-06 13:05 → 2ANU 05-06 17:58
PROVIDERS: ADMIT Family Medicine; ATTEND Internal Medicine